=== PATIENT | male | born 1990 ===

== ENCOUNTER → 2018-03-17 15:50 | Outpatient (CLI) | payer OTHER, MEDICAID, SELFPAY ==
--- NOTE | 2018-03-17 | DI.RAD.S_ITS ---
PROCEDURE: XR CHEST 2V INDICATIONS: COUGH TECHNIQUE: 2 views of the chest were acquired. COMPARISON: None. FINDINGS: Surgical changes and devices: None. Lungs and pleura: No pleural effusions or pneumothorax. Lung volumes are decreased and there is subsegmental atelectasis although patchy opacity seen in the retrocardiac region. Mediastinum: Mediastinal contours are normal. Heart size is normal. Bones and chest wall: No suspicious bony abnormalities. Soft tissues appear unremarkable. IMPRESSION: Patchy retrocardiac opacities raising possibility of aspiration/atelectasis versus early/mild pneumonia. Please correlate clinically. If there is persistent diagnostic uncertainty, short interval followup chest radiographs could be obtained after treatment. Low lung volumes Dictated by: Shahzad Cabrera M.D. on 03/17/2018 at 17:06 Approved by: Shahzad Cabrera M.D. on 03/17/2018 at 17:08
== END ==
PROVIDERS: Visit Provider Family Medicine
DX: R05 Cough (principal)
CPT/HCPCS: 71046

== ENCOUNTER 2019-03-09 14:12 | Emergency (ER) | payer OTHER, MEDICAID, SELFPAY ==
[2019-03-09 14:14] VITALS: BP 157/86; PULSE 105; RESP 16; TEMP 37.1; O2SAT 97; BMI 36.5
--- NOTE | 2019-03-09 16:12 | ED_ITS ---
HPI - Back Pain/Injury General Chief Complaint: Back Pain/Injury Stated Complaint: back popped when lifting kid Time Seen by Provider: 03/09/19 14:58 Source: patient Mode of arrival: Ambulatory Limitations: no limitations History of Present Illness HPI Narrative: 28-year-old male daily smoker with history of back problems presents with a chief complaint of severe episode of lower back pain with radiation down his left hip which started when he lifted his kid earlier today. He states he felt a pop and since then has had worsening symptoms. He has increasing pain with ambulation and improvement with rest. Denies any numbness, tingling or weakness. He denies trouble controlling bowel or bladder. He denies any foot drop. MD Complaint: back pain Onset (ago): hour(s) Duration: constant Similar Symptoms Previously: Yes Location: lumbar spine and left lower back Severity: moderate Quality: burning and sharp Radiation: none Relieving factors: none Exacerbating factors: none Context: while lifting and turning/twisting Associated symptoms: denies other symptoms Related Data Previous Rx's Medication Instructions Recorded diazepam [Valium] 5 mg PO TID PRN #14 tab 03/09/19 hydrocodone-acetaminophen 1 tab PO Q4-6H PRN #10 tab 03/09/19 ketorolac 10 mg PO Q6H PRN #14 tab 03/09/19 prednisone 20 mg PO DAILY #5 tab 03/09/19 Allergies Allergy/AdvReac Type Severity Reaction Status Date / Time No Known Drug Allergies Allergy Verified 03/09/19 14:17 Review of Systems Constitutional Constitutional: Denies chills, Denies fatigue, Denies fever(s), Denies frequent falls, Denies lethargy and Denies weakness Eyes Eyes: Denies change in vision, Denies eye discharge, Denies irritation and Denies loss of vision ENT Ears, Nose, Mouth, and Throat: Denies change in voice, Denies dizziness, Denies neck pain, Denies sore throat and Denies throat swelling Cardiovascular Cardiovascular: Denies chest pain, Denies irregular heart rhythm, Denies lightheadedness, Denies palpitations, Denies dyspnea, Denies dyspnea on exertion and Denies orthopnea Respiratory Respiratory: Denies cough, Denies dyspnea, Denies dyspnea on exertion and Denies wheezing Gastrointestinal Gastrointestinal: Denies abdominal pain, Denies change in bowel habits, Denies diarrhea, Denies nausea and Denies vomiting Genitourinary Genitourinary: Denies hematuria, Denies flank pain, Denies urinary incontinence and Denies urinary urgency Musculoskeletal Musculoskeletal: Reports back pain, Reports limited range of motion, Denies muscle weakness, Denies neck pain, Denies numbness and Denies tingling Integumentary/Breasts Skin/Breast: Denies pruritus, Denies erythema, Denies rash and Denies wounds Neurologic Neurologic: Denies behavioral changes, Denies confusion, Denies dizziness, Denies frequent falls, Denies loss of vision, Denies numbness, Denies tingling and Denies weakness Psychiatric Psychiatric: Denies anxiety, Denies behavioral changes, Denies confusion, Denies depression, Denies homicidal ideation and Denies suicidal ideation Endocrine Endocrine: Denies fatigue, Denies flushing and Denies palpitations Hematologic/Lymphatic Hematologic/Lymphatic: Denies easy bruising Allergic/Immunologic Allergic/Immunologic: Denies urticaria, Denies throat swelling and Denies wheezing [facility] Social History Smoking Status: Current every day smoker Social History Smoking Status: Current every day smoker Exam Initial Vital Signs Initial Vital Signs: Vital Signs Temperature 98.8 F 03/09/19 14:14 Pulse Rate 105 H 03/09/19 14:14 Respiratory Rate 16 03/09/19 14:14 Blood Pressure 157/86 H 03/09/19 14:14 Pulse Oximetry 97 03/09/19 14:14 Const General: cooperative and well developed Nutritional Appearance: well nourished Orientation: alert, awake, oriented x3 and not confused [facility] Head: normocephalic and atraumatic Ears: external ears normal and TM's normal bilaterally Nose: external nose normal and No nasal discharge Face and sinus: sinuses nontender, face symmetric, no sinus tenderness and No dry mucous membranes Mouth: oral mucosae normal and moist mucous membranes Teeth and gingiva: dentition normal Throat: tonsils normal and uvula midline Eyes General: appearance normal, both eyes and all related structures Eyelids: eyelids normal Conjunctivae: conjunctivae normal Sclera: sclerae normal Pupils: PERRL EOM: EOM intact bilaterally Neck Neck: normal visual inspection, trachea midline, No lymphadenopathy, No midline deformity and No JVD Lymphatic: No lymphedema Chest Chest: normal inspection of the chest Resp Effort & Inspection: normal respiratory effort, able to speak in complete sentences, no respiratory distress and no use of accessory muscles Auscultation: clear to auscultation bilaterally, no rales, no rhonchi and no wheezes Cardio Rate: regular rate Rhythm: regular rhythm Heart Sounds: no click, no gallops, no murmurs and no rubs Pulses: normal peripheral pulses GI Inspection: non-distended Palpation: soft, no hepatosplenomegaly, No guarding, No pulsatile mass and No tender Auscultation: normal bowel sounds Back/Spine/Pelvis Back: No CVA tenderness Cervical Spine: cervical ROM normal and No pain with cervical ROM Thoracic/Lumbar Spine: thoracic and lumbar spine normal to inspection Skin General: no rashes or lesions noted, No jaundice and No petechiae Neuro General: alert, oriented x3, gait normal and no focal motor deficits Speech: speech normal Extrem General: full ROM, no clubbing, cyanosis or edema, no pedal edema and no calf tenderness Psych Appearance: well kempt Mental Status: mental status grossly normal Attitude: cooperative Thought Content: normal and suicidality Judgment: judgment good Course Orders Ordered: Discontinued Medications Diazepam (Valium) 5 mg PO NOW ONE Stop: 03/09/19 16:30 Last Admin: 03/09/19 16:38 Dose: 5 mg Documented by: JULIAN Ketorolac Tromethamine (Toradol) 30 mg IM NOW ONE Stop: 03/09/19 16:30 Last Admin: 03/09/19 16:38 Dose: 30 mg Documented by: JULIAN Vital Signs Vital signs: Vital Signs - 8 hr 03/09/19 14:14 Temperature 98.8 F Pulse Rate 105 H Respiratory Rate 16 Blood Pressure 157/86 H Pulse Oximetry 97 Discharge Plan Departure Patient Disposition: Home Clinical Impression: Lumbar back pain Discharge Date/Time: 03/09/19 16:55 Instructions: DI for Low Back Pain Activity Restrictions/Additional Instructions: *You have been diagnosed with [lumbar pain with left-sided radiculopathy] *What to do: *Take medications as directed *Follow up with your primary care provider in 2-3 days, call for an appointment. Let them know you were seen in the Emergency Department and that we ask that you be seen in follow up *Return to ER if you should have any new, worsening or concerning symptoms You have been prescribed narcotic medications. While on these medications you cannot drive or operate heavy machinery. Additionally you cannot sign legal documents or perform any duties such as this. Many people get constipated on narcotic medications so it would be advisable to discuss stool softeners with the pharmacist when you cloth picker your prescription. Please understand that we cannot provide further refills of narcotics or controlled substances through the ED and your pain management will need to be through your Primary Care Provider Prescriptions: New ketorolac 10 mg tablet 10 mg PO Q6H PRN (Reason: pain) Qty: 14 RF: 0 diazepam [Valium] 5 mg tablet 5 mg PO TID PRN (Reason: muscle spasm) Qty: 14 RF: 0 hydrocodone-acetaminophen 5-325 mg tablet 1 tab PO Q4-6H PRN (Reason: pain) Qty: 10 RF: 0 prednisone 20 mg tablet 20 mg PO DAILY Qty: 5 RF: 0 Referrals: Miriam Aragon MD [Physician] -
[2019-03-09] MEDS: diazePAM 5 MG TABLET PO (16:38)
[2019-03-09] MEDS: KETOROLAC 60 MG/2 ML VIAL 30 MG IM (16:38)
[2019-03-09 16:55] VITALS: BP 148/78; PULSE 99; RESP 16; O2SAT 97
== END 2019-03-09 16:55 | disposition home or self-care (01) ==
PROVIDERS: Emergency Provider Emergency Medicine
DX: M54.5 Low back pain (principal)
CPT/HCPCS: 96372; 99282; 99283; J1885

== ENCOUNTER 2019-04-27 17:24 | Emergency (ER) | payer OTHER, MEDICAID, SELFPAY ==
[2019-04-27 17:38] VITALS: BP 134/80; PULSE 109; RESP 18; TEMP 36.9; O2SAT 99; BMI 34.5
--- NOTE | 2019-04-27 19:16 | ED_ITS ---
HPI - URI/Sore Throat General Chief Complaint: Upper Respiratory Symptoms Stated Complaint: inflamed tonsils, coughing blood Time Seen by Provider: 04/27/19 19:09 Source: patient Mode of arrival: Family Vehicle Limitations: no limitations History of Present Illness HPI Narrative: 28-year-old male comes in with complaint of sore throat, subjective fevers and states he has been coughing up blood. Patient states that the sore throat started in the last 2 days. He was seen yesterday Enzo Torres and had a negative rapid strep he states he has had nasal congestion, sore throat, he states he is able to swallow liquids but has not been able to eat food because it is too uncomfortable. He has been a little bit worse but has not had any muffled voice. He denies any stridor or difficulty breathing. Patient states he has had a cough that is been nonproductive he has coughed up some small streaks of blood. He denies any chest pain or pressure. He states he has been nauseated but denies vomiting. patient denies any issues with bowel movements or urination. He denies any rash or skin changes. He denies any swelling in his extremities. States he is otherwise healthy. He has been taking ibuprofen as needed with minimal improvement. He has tried warm saltwater gargles. Related Data Previous Rx's Medication Instructions Recorded diazepam [Valium] 5 mg PO TID PRN #14 tab 03/09/19 hydrocodone-acetaminophen 1 tab PO Q4-6H PRN #10 tab 03/09/19 ketorolac 10 mg PO Q6H PRN #14 tab 03/09/19 prednisone 20 mg PO DAILY #5 tab 03/09/19 Allergies Allergy/AdvReac Type Severity Reaction Status Date / Time No Known Drug Allergies Allergy Verified 04/27/19 17:42 Review of Systems Review of Systems ROS Unobtainable: All systems reviewed & are unremarkable except as noted in HPI and below Constitutional Constitutional: Denies chills, Reports fever(s) (Subjective), Denies headache(s), Denies lethargy and Denies weakness ENT Ears, Nose, Mouth, and Throat: Reports as per HPI, Reports otalgia (left ear), Denies headache(s), Reports nasal congestion, Denies sinus pain, Reports sore throat, Denies throat swelling and Denies tongue swelling Cardiovascular Cardiovascular: Denies chest pain, Denies syncope, Denies edema, Denies lightheadedness, Denies dyspnea and Denies dyspnea on exertion Respiratory Respiratory: Denies change in phlegm color, Denies chest congestion, Reports cough, Reports hemoptysis, Denies excessive phlegm production, Denies dyspnea, Denies dyspnea on exertion, Denies stridor and Denies wheezing Gastrointestinal Gastrointestinal: Denies abdominal pain, Denies change in bowel habits, Denies constipation, Denies diarrhea, Reports nausea and Denies vomiting Integumentary/Breasts Skin/Breast: Denies erythema and Denies rash Neurologic Neurologic: Denies syncope, Denies headache(s) and Denies weakness Allergic/Immunologic Allergic/Immunologic: Denies throat swelling, Denies tongue swelling and Denies wheezing Patient History Social History Smoking Status: Current every day smoker tobacco type: cigarettes alcohol intake frequency: a few times a month Substance Use Type: does not use Exam Narrative Exam Narrative: GEN: well nourished, well appearing male, alert and oriented x 3, patient appears to be in mild distress. HEENT: Atraumatic, pupils are equal round reactive to light, extraocular movements are intact, nares are clear, TMs are clear with no fluid, there is no conjunctival pallor. Throat is erythematous without any exudates, bilateral tonsillar enlargement or uvular deviation, patient has slightly hoarse voice but not muffled. No stridor. He is able to swallow his secretions without any issue. HEART: Regular rate and rhythm without murmur, clicks, rubs. LUNGS:Lungs clear to auscultation, no wheezes, rales, crackles, chest moves symmetrically ABD:bowel sounds normal, soft, non-tender, no guarding, rebound, rigidity, no masses noted, no hepatosplenomegaly :No CVA tenderness MSCL: Non-tender, no muscle atrophy, muscles strength 5/5 upper and lower extremities, full range of motion, normal gait NEURO:CN 2-12 intact, sensation normal SKIN: No erythema, no rash. Initial Vital Signs Initial Vital Signs: Vital Signs Temperature 98.4 F 04/27/19 17:38 Pulse Rate 109 H 04/27/19 17:38 Respiratory Rate 18 04/27/19 17:38 Blood Pressure 134/80 04/27/19 17:38 Pulse Oximetry 99 04/27/19 17:38 Course Orders Ordered: ED Orders 04/27/19 19:40 Throat Culture Stat Discontinued Medications Dexamethasone (Decadron) 10 mg PO NOW ONE Stop: 04/27/19 19:26 Last Admin: 04/27/19 19:36 Dose: 10 mg Documented by: QUINN Vital Signs Vital signs: Vital Signs - 8 hr 04/27/19 17:38 Temperature 98.4 F Pulse Rate 109 H Respiratory Rate 18 Blood Pressure 134/80 Pulse Oximetry 99 MDM - URI/Sore Throat Lab Data Attestation: I reviewed the patient's lab results. Labs: Point of Care Testing Rapid Strep A Negative MDM Narrative Medical decision making narrative: Discussed with patient likely viral, he has had 2-rapid strep but we discussed doing a throat culture. Did give him a dose of Decadron as this may help with swelling and pain as he has not had much improvement with ibuprofen. Patient I discussed he can do warm salt water gargles although he has been trying that. He has been handling and secretions without issues and is getting plenty hydration and drinking [place] instant breakfast to add some calories. Discharge Plan Departure Patient Disposition: Home Clinical Impression: Pharyngitis Discharge Date/Time: 04/27/19 19:47 Instructions: DI for Pharyngitis/Tonsillopharyngitis -- Adult Activity Restrictions/Additional Instructions: Follow up with primary care in the next week if you are not having any improvement. Continue ibuprofen up to 800mg every 8 hours as needed, you may also take tylenol up to 1000mg every 8 hours. Continue with warm saltwater gargles as needed. Return to the emergency department for persistent fevers, muffled voice, increasing swelling in throat, difficulty swallowing liquids or inability to swallow your own saliva/secretions, swelling of the neck, stridor or high- pitched audible wheezing, passing, new chest pain, shortness of breath, or other new or concerning symptoms. Prescriptions: No Action ketorolac 10 mg tablet 10 mg PO Q6H PRN (Reason: pain) Qty: 14 RF: 0 diazepam [Valium] 5 mg tablet 5 mg PO TID PRN (Reason: muscle spasm) Qty: 14 RF: 0 hydrocodone-acetaminophen 5-325 mg tablet 1 tab PO Q4-6H PRN (Reason: pain) Qty: 10 RF: 0 prednisone 20 mg tablet 20 mg PO DAILY Qty: 5 RF: 0
[2019-04-27] MEDS: DEXAMETHASONE 10 MG/ML VIAL PO (19:36)
== END 2019-04-27 19:47 | disposition home or self-care (01) ==
PROVIDERS: Emergency Provider Emergency Medicine
DX: J02.9 Acute pharyngitis, unspecified (principal)
CPT/HCPCS: 87070; 87077; 87147; 87880; 99282; 99283; J1100